=== PATIENT | female | born 1940 | race Asian ===

== ENCOUNTER 2025-09-21 03:00 | Emergency (ER) | payer MEDICARE, MEDICAID ==
[~2025-09-21] VITALS: Ht 154.9 cm; Wt 51.0 kg
[~2025-09-21 03:00] MED LIST: ATOR40TA28 PO; CIPR250T6 PO; METF-1211 PO
[2025-09-21] MEDS ORDERED: DILT30TA3 PO (03:17)
[2025-09-21] MEDS ORDERED: METF-1211 PO (03:17)
[2025-09-21] MEDS ORDERED: CETI10TA77 PO (03:17)
[2025-09-21] MEDS ORDERED: LISI-892 PO (03:17)
[2025-09-21] MEDS ORDERED: GLIM2TAB35 PO (03:17)
[2025-09-21] MEDS ORDERED: DAPA5TAB6 PO (03:17)
[2025-09-21 03:28] LABS: PLATELET COUNT (AUTO) 185 K/uL (150-450); RED BLOOD CELL COUNT(AUTO) 4.47 MIL/uL (4.00-5.20); RED CELL DISTRIBUTION WIDTH 13.4 % (11.5-14.5); WHITE BLOOD COUNT (AUTO) 7.1 K/uL (4.5-11.0)
[2025-09-21 03:42] LABS: ASPARTATE AMINOTRANSFERASE 30.0 U/L (15-37); TOTAL PROTEIN, SERUM 8.5 g/dL (6.4-8.2)
[2025-09-21 03:51] LABS: CALCIUM, TOTAL 9.2 mg/dL (8.8-10.5); CREATININE 1.63 mg/dL (0.60-1.30); GLOMERULAR FILTR. RATE CALC 30.0 mL/min (>60); GLUCOSE,RANDOM 147.0 mg/dL (70-110); SODIUM SERUM 137.0 mmol/L (136-145); UREA NITROGEN, BLOOD 22.0 mg/dL (7-18)
[2025-09-21 04:18] VITALS: TEMP 98.205296
[2025-09-21 04:50] LABS: GLUCOMETER DEV NAME(LOC) ER.7; GLUCOSE,POINT OF CARE 207 MG/DL (70-110)
[2025-09-21] MEDS: DEXTROSE 50%-WATER 25 GM/50 ML SYRINGE IVP ONE (05:38)
[2025-09-21 05:45] LABS: GLUCOMETER DEV NAME(LOC) ER.7; GLUCOSE,POINT OF CARE 169 MG/DL (70-110)
[2025-09-21 05:50] VITALS: BP 136/82; PULSE 80; RESP 14; O2SAT 97
== END 2025-09-21 06:10 | disposition home or self-care (01) ==
LOC: EMS 03:13
DX: E11.649 Type 2 diabetes mellitus with hypoglycemia without coma (principal); I10 Essential (primary) hypertension; Z79.899 Other long term (current) drug therapy
CPT/HCPCS: 80048; 80076; 82962; 85025; 93005; 96374; 99284